=== PATIENT | female | born 1985 | race African-American/Black ===

== ENCOUNTER 2022-03-31 09:42 | Emergency (ER) | payer OTHER ==
[~2022-03-31] VITALS: Ht 170.2 cm; Wt 72.6 kg
--- NOTE | 2022-03-31 09:56 | NUR ---
URINE SAMPLE PROVIDED BY
[2022-03-31 10:11] LABS: BILIRUBIN,URINE NEGATIVE (NEGATIVE); COLOR,URINE YELLOW (YELLOW); LEUKOCYTE ESTERASE ,URINE NEGATIVE (NEGATIVE); NITRITE, URINE NEGATIVE (NEGATIVE); PROTEIN,URINE NEGATIVE (NEGATIVE); UGLUCOSE NEGATIVE (NEGATIVE); UROBILINOGEN,URINE 0.2 EU/dL (0.2)
[2022-03-31 10:14] LABS: BACTERIA,URINE 1+ /HPF (None Seen); RBC,URINE 0-2 /HPF (0-2); SQUAMOUS EPITHELIAL CELL,UR Rare /HPF (None Seen)
[2022-03-31] MEDS ORDERED: CEPH500C2 PO (11:01)
--- NOTE | 2022-03-31 11:15 | NUR ---
Patient discharged to home in stable condition. Written and verbal after care instructions given. Patient verbalizes understanding of instruction.
[2022-03-31 11:16] VITALS: BP 128/58
== END 2022-03-31 11:16 | disposition home or self-care (01) ==
LOC: ER 09:42
DX: N39.0 Urinary tract infection, site not specified (principal); Z87.440 Personal history of urinary (tract) infections
CPT/HCPCS: 81001; 84703-TC; 87086-TC

== ENCOUNTER 2022-05-23 05:27 | Emergency (ER) | payer OTHER ==
[~2022-05-23] VITALS: Ht 170.2 cm; Wt 72.6 kg
[~2022-05-23 05:27] MED LIST: CEPH500C2 PO
--- NOTE | 2022-05-23 06:00 | NUR ---
TO ER BED 10. BIBS C/O SORE THROAT X 2 DAYS. PT IS ALERT AND ORIENTED. RR EVEN AND NONLABORED. CONNECTED TO MONITOR
[2022-05-23] MEDS ORDERED: AMOX500C2 PO (06:23)
[2022-05-23] MEDS ORDERED: AMOXICILLIN TRIHYDRATE 250 MG CAPSULE ONE (06:25)
[2022-05-23] MEDS ORDERED: DEXAMETHASONE 4 MG TABLET ONE (06:26)
[2022-05-23] MEDS ORDERED: AMOXICILLIN TRIHYDRATE 500 MG CAPSULE PO ONE (06:30)
[2022-05-23] MEDS ORDERED: DEXAMETHASONE 1 MG TABLET PO ONE (06:30)
--- NOTE | 2022-05-23 06:33 | NUR ---
STREP SWAB COLLECTED
[2022-05-23 06:34] VITALS: BP 110/65
--- NOTE | 2022-05-23 06:34 | NUR ---
Patient discharged to home in stable condition. Written and verbal after care instructions given. Patient verbalizes understanding of instruction.
== END 2022-05-23 06:34 | disposition home or self-care (01) ==
LOC: ER 05:28
DX: J03.90 Acute tonsillitis, unspecified (principal)
CPT/HCPCS: 99283; 87880; J8540; 86403-TC

== ENCOUNTER 2022-09-23 08:28 | Emergency (ER) | payer OTHER ==
[~2022-09-23] VITALS: Ht 170.2 cm; Wt 74.8 kg
[~2022-09-23 08:28] MED LIST changes: +AMOX500C2 PO
[2022-09-23 08:37] VITALS: BP 108/58
--- NOTE | 2022-09-23 08:40 | NUR ---
C/O RIGHT ARM PAIN X 1 MONTH "FROM [place]"
--- NOTE | 2022-09-23 08:50 | NUR ---
AT BEDSIDE FOR EVAL
--- NOTE | 2022-09-23 08:56 | NUR ---
RIGHT VELCRO BRACE PROVIDED
--- NOTE | 2022-09-23 09:39 | NUR ---
XRAY AT BEDSIDE
--- NOTE | 2022-09-23 09:50 | NUR ---
Patient discharged to home in stable condition. Written and verbal after care instructions given. Patient verbalizes understanding of instruction.
== END 2022-09-23 09:54 | disposition home or self-care (01) ==
LOC: ER 08:29
DX: G56.01 Carpal tunnel syndrome, right upper limb (principal); Z60.2 Problems related to living alone
CPT/HCPCS: 73110

== ENCOUNTER 2023-07-19 21:25 | Emergency (ER) | payer OTHER ==
[~2023-07-19] VITALS: Ht 170.2 cm; Wt 77.1 kg
[2023-07-19 22:41] VITALS: BP 117/62; TEMP 97.7; O2SAT 99
[2023-07-19] MEDS ORDERED: AZIT250T PO (23:07)
== END 2023-07-19 23:15 | disposition home or self-care (01) ==
LOC: ER 21:26
DX: H66.91 Otitis media, unspecified, right ear (principal); J03.90 Acute tonsillitis, unspecified; Z79.899 Other long term (current) drug therapy; Z60.2 Problems related to living alone

== ENCOUNTER 2023-07-28 11:00 | Emergency (ER) | payer OTHER ==
[~2023-07-28] VITALS: Ht 170.2 cm; Wt 77.1 kg
[~2023-07-28 11:00] MED LIST changes: +AZIT250T PO
[2023-07-28 11:12] VITALS: BP 127/88; TEMP 98.2
[2023-07-28] MEDS ORDERED: FLUT16SP BNOSTRILS (11:29)
[2023-07-28 11:37] VITALS: O2SAT 99
== END 2023-07-28 11:38 | disposition home or self-care (01) ==
LOC: ER 11:00
DX: H69.81 Other specified disorders of Eustachian tube, right ear (principal); Z60.2 Problems related to living alone